=== PATIENT | male | born 1960 | race Caucasian/White ===

== ENCOUNTER 2018-09-19 10:53 | Inpatient (IN) | payer OTHER ==
[~2018-09-19] VITALS: Ht 162.6 cm; Wt 71.8 kg
[2018-09-19] VITALS (11 sets, daily range): BP systolic 90–109; BP diastolic 56–70
[2018-09-19 11:41] LABS: ABSOLUTE NEUTROPHILS 10.2 thou/uL (1.4-8.2); BASOPHILS 0.5 % (0.0-2.0); EOSINOPHILS 1.7 % (0.0-3.0); HEMATOCRIT 36.7 % (42.0-52.0); LYMPHOCYTES 11.6 % (24.0-44.0); MCH 23.5 pg (26.0-34.0); MCHC 32.6 g/dL (28.0-37.0); MCV 71.9 fL (80.0-100.0); MONOCYTES 9.1 % (1.0-8.0); PLATELET COUNT 225 thou/uL (150-400); POLYS 77.1 % (36.0-66.0); RDW 13.7 % (10.5-14.5); WBC 13.3 thou/uL (4.0-11.0)
[2018-09-19 11:49] LABS: CREATININE 1.4 mg/dL (0.7-1.3); POTASSIUM 3.6 mmol/L (3.5-5.1)
[2018-09-19 11:59] LABS: TROPONIN-I 29.52 ng/mL (<0.06)
[2018-09-19 12:29] LABS: CHOLESTEROL 195 mg/dL (<200); HDL CHOLESTEROL 36 mg/dL (>40); LDL CHOLESTEROL 124 mg/dL (<100); TC:HDL 5.4 Ratio (Not establshd); TRIGLYCERIDE 175 mg/dL (<150); VLDL 35 mg/dL (<40)
--- NOTE | 2018-09-19 14:23 | CATHLAB ---
[facility] [place] [address] INVASIVE PROCEDURE REPORT Name: SASKIA CAVANAUGH Room #: 150-1 ADM IN M.R.#: [id number] Admission: 09/19/18 Attend Phys: Rock Delong MD Discharge: Date of : 62 Date of Service: 09/19/18 1423 Report #: [id number] THIS REPORT FOR: //name// APPROVED REPORT Study performed: 09/19/2018 12:20:28 Patient Details Patient Status: In-Patient Room #: The patient is a 57 year-old male Event Personnel Domingo Espinoza Enrober, Tisha Prasad RN RN, Rufina Tejada Monitor, Maria Luisa Langeub, Danii Ayoub RT(R)() Scrsabine Procedures Performed Art Access - R femoral artery* 07478 Initial Mod Sed Same Phys/QHP Gr5y 125533 33798 Mod Sed Same Phys/QHP Ea 754341 Left Heart Cath w/or w/o Coronaries 6230787 [facility] Revasc AMI Total/Sub Single RCA C[address] w/wo Plasty Single LAD 806831 Hemostasis w/ Mynx Indication STEMI Procedure Narrative The patient was brought emergently to the Cardiac Catheterization Laboratory and was prepped and draped in a sterile manner. The Right Groin^ was infiltrated with 1% Lidocaine subcutaneous anesthesia. A PINNACLE 6FR Sheath #[id number] sheath was inserted into the RFA^. Coronary angiography was performed using coronary diagnostic catheters. The right coronary system was accessed and visualized with a JR 4 catheter. The left coronary system was accessed and visualized with a JL 4 catheter. The left ventricle was accessed and visualized with a Pigtail catheter. Left ventricular/Aortic Valve gradient assessed via catheter pullback. Left ventriculogram was performed in GREWAL projection. Closure device was deployed with a 6 Fr Mynx. The patient tolerated the procedure well and there were no complications associated with the procedure. There was no hematoma. Intraoperative Conscious Sedation Sedation start time: 12:27 Case end Time: 13:37 Fentanyl 50 mcg Versed [address] [address] INVASIVE PROCEDURE REPORT Name: SASKIA CAVANAUGH Room #: 150-1 [facility]#: [id number] Admission: 09/19/18 Attend Phys: Rock Delong MD Discharge: Date of : 62 Date of Service: 09/19/18 1423 Report #: [id number] Fluoro Time: 11.18 minutes Dose: DAP 36802.00 cGycm2 1537 mGy Contrast Type and Amount: Visipaque 300 ml Coronary Angiography The patient's coronary anatomy is co- dominant. Diagnostic Cath Left Main Normal left main LAD Moderate 50% proximal LAD stenosis with a discrete 85% stenosis in the proximal LAD just after a large first diagonal branch Diagonal 1 40-50% proximal stenosis. This was a large vessel Circumflex Circumflex was large but nondominant. The circumflex was angiographically normal OM1 Small first marginal branch, angiographically normal L PDA The distal circumflex gave rise to the posterior descending which was relatively small but angiographically normal Right Coronary The right coronary exhibited a 40-50% proximal stenosis. The distal right coronary was occluded before the origin of a large posterior lateral branch, small posterior descending branch Left Ventriculography The left ventricle is normal in size with abnormal contractility. The left ventricular ejection fraction is estimated to be 45%. Left ventricular wall motion abnormalities are present. There is no mitral insufficiency. Hypokinesis involving the inferior wall. Hemodynamics The aortic pressure is 119/70 mmHg with a mean of 88 mmHg. The left ventricular pressure is 107/21 mmHg with a mean of mmHg. The left ventricular end diastolic pressure is 38 mmHg. PCI Technique Lesion Anticoagulation was achieved with Heparin, Integrilin. Patient was preloaded with Effient. Percutaneous coronary intervention was performed on the distal right coronary artery. The lesion stenosis prior to intervention was 100% with NATALIIA 0 flow. A LAUNCHER 6FR JR 4 #[id number] Guide Catheter was used to engage the right coronary ostium. A Luge Wire .014 x 182CM #[id number] Interventional Guidewire was used to cross the lesion. BALLOON DILATION [facility] [address] [place] [address] INVASIVE PROCEDURE REPORT Name: SASKIA CAVANAUGH Room #: 150-1 [facility] IN [facility]#: [id number] Admission: 09/19/18 Attend Phys: Rock Delong MD Discharge: Date of : 62 Date of Service: 09/19/18 1423 Report #: [id number] A Balloon catheter Euphora RX 2.5 x 12 #[id number] was inserted and inflated up to 8.00atm for 28seconds. Repeat angiography revealed the following post-dilatation results: long, severe residual stenosis. Additional Inflation: 10.00atm for 32seconds. Additional Inflation: 12.00atm for 33seconds. STENT DEPLOYMENT A drug-eluting stent RESOLUTE PENELOPE RX 3.0 X 26 #[id number] was inserted and inflated up to 14.00atm for 25seconds. Repeat angiography revealed the following post-stent deployment results: 0% residual with NATALIIA-3 flow restored. POST STENT DEPLOYMENT BALLOON DILATION A Balloon catheter TREK NC RX 3.0 X 15 #[id number] was inserted and inflated up to 18.00atm for 30seconds. Repeat angiography revealed the following post-stent deployment results: 0% residual stenosis with NATALIIA-3 flow restored.. Additional Inflation: 22.00atm for 30seconds. Final angiography reveals 0 % stenosis with NATALIIA 3 flow. PCI Technique Lesion 2 Percutaneous Coronary Intervention was performed on the proximal left anterior descending artery segment. Patient was preloaded with Effient. Percutaneous coronary intervention was performed on the proximal left anterior descending. The lesion stenosis prior to intervention was 90% with NATALIIA 3 flow. A LAUNCHER 6FR EBU 3.5 #[id number] Guide Catheter was used to engage the left main ostium. A Luge Wire .014 x 182CM #[id number] Interventional Guidewire was used to cross the lesion. Balloon Dilation A Balloon catheter Euphora RX 2.5 x 12 #[id number] was inserted and inflated up to 6.00atm for 14seconds. Repeat angiography revealed the following post-dilatation results: moderate residual stenosis. Additional Inflation: 8.00atm for 30seconds. Stent Deployment A drug-eluting stent RESOLUTE PENELOPE RX 2.75 X15 #[id number] was inserted and inflated up to 12.00atm for 17seconds. Repeat angiography revealed the following post-stent deployment results: 0% residual stenosis. Post Stent Deployment Balloon Dilation A Balloon catheter TREK NC RX 2.5 X 12 #[id number] was inserted and inflated up to 24.00atm for 27seconds. Repeat angiography revealed [facility] [address] [place] [address] INVASIVE PROCEDURE REPORT Name: SASKIA CAVANAUGH Room #: 150-1 ADM IN [facility]#: [id number] Admission: 09/19/18 Attend Phys: Rock Delong MD Discharge: Date of : 62 Date of Service: 09/19/18 1423 Report #: [id number] the following post-dilatation results: 0% residual stenosis. Final angiography reveals 0 % stenosis with NATALIIA 3 flow. Conclusion 1. Moderate left ventricular dysfunction with inferior wall hypokinesis. Ejection fraction 45% 2. Normal left main 3. Severe proximal LAD stenosis successfully stented with a 2.75 x 15 mm Resolute [place] medicated stent. Moderate 50% proximal LAD stenosis to the stent 4. Normal, codominant circumflex 5. Occluded distal right coronary successfully stented with a 3.0 x 26 mm Resolute [place] medicated stent. Distal right supplied a large PL branch Recommendations Smoking Cessation Cardiac Rehabilitation Referral Aggressive Medical Therapy Medications Administered BETO Inhibitor (any) Aspirin (any) Statin (any) Prasugrel Cardiac Rehabilitation Referral Smoking Cessation <ELECTRONICALLY SIGNED> By: Domingo Espinoza MD, FAC 09/19/18 1423 1423 1423 Domingo Espinoza MD, FACC /INF
[2018-09-19] MEDS ORDERED: TYLENOL EXTRA500 MG PO (22:02)
[2018-09-20 00:05] LABS: GLYCOHEMOGLOBIN (HGB A1C) 6.3 % (4.8-5.6)
[2018-09-20 00:45] VITALS: BP 92/56
[2018-09-20 04:30] VITALS: BP 95/61
[2018-09-20 05:52] LABS: HEMATOCRIT 31.5 % (42.0-52.0); HEMOGLOBIN 10.2 gm/dL (14.0-18.0); MCH 23.4 pg (26.0-34.0); MCHC 32.4 g/dL (28.0-37.0); MCV 72.4 fL (80.0-100.0); RBC 4.35 mil/uL (4.50-6.00); RDW 14.4 % (10.5-14.5); WBC 11.5 thou/uL (4.0-11.0)
--- NOTE | 2018-09-20 05:53 | NUR ---
PT. ON BED RESTING WITH SPOUSE AND DAUGHTER IN THE ROOM; AOX4; R PEDAL PULSE PRESENT; NO EDEMA OR HEMATOMA OVER INCISION; DRESSING SHOWING OLD BLEEDING; NO C/O UNTIL EARLY ON THE MORNING; COMPLETED ADMITION; ADVICE TO QUIT SMOKING HR WNL; SBP ON 90'S; NO C/O HEADACHE OR DIZZINESS; ABLE TO REST MOS THE NIGHT. ASSESSMENT CHARGED; FOLLOWING POC.
[2018-09-20 06:09] LABS: ALBUMIN 2.6 g/dL (3.4-5.0); CALCIUM 7.9 mg/dL (8.5-10.1); CREATININE 1.2 mg/dL (0.7-1.3); POTASSIUM 3.6 mmol/L (3.5-5.1); TOTAL BILIRUBIN 1.2 mg/dL (<0.1-1.0); TOTAL PROTEIN 6.3 g/dL (6.4-8.2)
[2018-09-20 06:12] LABS: TROPONIN-I 39.02 ng/mL (<0.06)
[2018-09-20 07:55] VITALS: BP 98/59
[2018-09-20 11:45] VITALS: BP 108/73
--- NOTE | 2018-09-20 11:58 | EKG ---
[address] [address] ELECTROCARDIOGRAM REPORT Name: SASKIA CAVANAUGH Room #: 210-P ADM IN M.R.#: [id number] Admission: 09/19/18 Attend Phys: Rock Delong MD Discharge: Date of : 62 Report #: [id number] THIS REPORT FOR: //name// [facility] ED Test Date: 2018-09-19 Test Time: 11:29:47 Pat Name: SASKIA CAVANAUGHDepartment: Room: 210 Gender: M Animal Husbandman: TOÑO : 1960 Requested By: Andrea Burrows Order Number: [id number] MD: Domingo Espinoza Measurements Intervals [place] Rate: 67 P: 45 IL: 212 QRS: -18 QRSD: 94 T: 3 QT: 388 QTc: 410 Interpretive Statements Sinus rhythm Prolonged IL interval Inferolateral infarct, acute No previous ECG available for comparison Electronically Signed On 09-20-2018 11:58:10 COOK BOX FILLER by Domingo Espinoza [email or web address] <ELECTRONICALLY SIGNED> By: Domingo Espinoza MD, [facility] 09/20/18 1158 1129 1129 Domingo Espinoza MD, FAC /EPI
--- NOTE | 2018-09-20 12:00 | EKG ---
[place] [address] [place] [address] ELECTROCARDIOGRAM REPORT Name: SASKIA CAVANAUGH Room #: 210- ADM IN M.R.#: [id number] Admission: 09/19/18 Attend Phys: Rock Delong MD Discharge: Date of : 62 Report #: [id number] THIS REPORT FOR: //name// [facility] Test Date: 2018-09-19 Test Time: 14:45:41 Pat Name: SASKIA CAVANAUGHDepartment: Room: 210 Gender: M Hoseman: KYUNG : 1960 Requested By: Domingo Espinoza Order Number: [id number] MD: Domingo Espinoza Measurements Intervals [place] Rate: 72 P: 39 MN: 190 QRS: -20 QRSD: 87 T: -18 QT: 383 QTc: 420 Interpretive Statements Sinus rhythm Inferior infarct, recent No previous ECG available for comparison Electronically Signed On 09-20-2018 12:00:12 SHEAR SCRAPMAN by Domingo Espinoza [email or web address] <ELECTRONICALLY SIGNED> By: Domingo Espinoza MD, [facility] 09/20/18 [facility] 1445 1445 Domingo Espinoza MD, FACC /EPI
--- NOTE | 2018-09-20 12:10 | EKG ---
[address] [address] ELECTROCARDIOGRAM REPORT Name: SASKIA CAVANAUGH Room #: 210-P ADM IN M.R.#: [id number] Admission: 09/19/18 Attend Phys: Rock Delong MD Discharge: Date of : 62 Report #: [id number] THIS REPORT FOR: //name// [facility] Test Date: 2018-09-20 Test Time: 09:58:44 Pat Name: SASKIA CAVANAUGHDepartment: Room: 210 P Gender: M Vamp Wetter: NICKI : 1960 Requested By: Domingo Espinoza Order Number: [id number] MD: Domingo Espinoza Measurements Intervals [place] Rate: 97 P: 41 MA: 200 QRS: -20 QRSD: 93 T: -45 QT: 353 QTc: 449 Interpretive Statements Sinus rhythm Borderline prolonged MA interval Abnormal R-wave progression, early transition Inferior infarct, recent No previous ECGs available for comparison Electronically Signed On 09-20-2018 12:09:52 [employer]OR [employer]LYTICS by Domingo Espinoza [email or web address] <ELECTRONICALLY SIGNED> By: Domingo Espinoza MD, [facility] 09/20/18 1209 0958 0958 Domingo Espinoza MD, [facility] /EPI
--- NOTE | 2018-09-20 12:16 | HC ---
[facility] [place] [address] CONSULTATION Name: SASKIA CAVANAUGH Room #: 210-P [facility] IN M.R.#: [id number] Admission: 09/19/18 Attend Phys: Rock Delong MD Discharge: Date of : 62 Report #: [id number] THIS REPORT FOR: //name// CC: [facility] physician/PCP Rock Delong DATE OF SERVICE: 09/19/2018 REASON FOR CONSULTATION: Chest pain. HISTORY OF PRESENT ILLNESS: The patient is a 57-year-old [place] gentleman with a fairly limited past medical history. He is a smoker. Over the past 2-3 days, he has experienced midsternal chest tightness. This has come and gone, although was more persistent earlier today. He has also had episodes of lightheadedness, particularly with standing. No associated palpitations or syncope. No prior cardiac history. He presented to the Emergency Department for an EKG at 07/30/2018 demonstrated sinus rhythm with inferolateral acute OK. There were fairly sizable inferior and lateral Q-waves present. He has ongoing midsternal chest discomfort. No heart failure symptoms including orthopnea, paroxysmal nocturnal dyspnea, or lower extremity edema. ALLERGIES: No known drug allergies. MEDICATIONS: Takes no medicines on a regular basis. PAST MEDICAL HISTORY: Medical records have been reviewed. No significant hospitalizations or illnesses. SOCIAL HISTORY: He is a smoker, woodworking machinist, . FAMILY HISTORY: Unremarkable for premature coronary artery disease. REVIEW OF SYSTEMS: All systems negative except as that noted above. PHYSICAL EXAMINATION: GENERAL: A pleasant gentleman in no distress. VITAL SIGNS: Blood pressure is 110/70, heart rate of 67 and regular. HEENT: There are neither xanthelasma, subcutaneous xanthomata, oral mucosal or digital cyanosis or kyphoscoliosis present. CHEST: Clear to auscultation and percussion. CARDIAC: Reveals a distant regular rate and rhythm with normal S1, S2. No murmurs or rubs. ABDOMEN: Soft and nontender. EXTREMITIES: Without cyanosis, clubbing or edema. Radial pulses are 2+. NEUROLOGIC: He is alert with a nonfocal exam. [facility] [address] [place] [address] CONSULTATION Name: SASKIA CAVANAUGH Room #: 210-[facility]#: [id number] Admission: 09/19/18 Attend Phys: Rock Delong MD Discharge: Date of : 62 Report #: [id number] LABORATORY DATA: Troponin is 29, white count 13.3, creatinine 1.4. IMPRESSION: 1. Acute inferolateral myocardial infarction. 2. Orthostatic hypotension. 3. Unknown lipid status. 4. Tobacco dependency. RECOMMENDATIONS: 1. Heparin and antiplatelet therapy. 2. Urgent coronary angiography. The angiographic procedure was discussed in detail including its associated risks. After a thorough discussion of the procedure, its risks and alternatives and after answering his questions, he is agreeable to proceeding. <ELECTRONICALLY SIGNED> By: Domingo Espinoza MD, FAC 09/20/18 1216 1206 1859 Domingo Espinoza MD, [facility] /nt
[2018-09-20 15:40] VITALS: BP 120/83
--- NOTE | 2018-09-20 18:01 | NUR ---
ASSESSMENTS COMPLETED AND DOCUMENTED. NO S/SX OF CARDIAC OR RESP DISTRESS. NO COMPLAINTS VOICED. WALKING UNIT TODAY, FAMILY AT BEDSIDE. WILL CONTINUE TO MONITOR.
[2018-09-20 20:39] VITALS: BP 131/87
[2018-09-21 05:59] VITALS: BP 129/65
--- NOTE | 2018-09-21 07:41 | NUR ---
ASSUME CARE 1900. PT/VITALS STABLE. ADEQUATE REST NOTED THROUGH THE NIGHT. UP AD EDI. DENIES ANY PAIN. PROGRESSING WELL WITH POC. PLAN IS POSSIBLE DISCHARGE HOME TODAY. WILL CONTINUE TO FOLLOW WITH POC
[2018-09-21] MEDS ORDERED: LISINOPRIL5 MG PO (07:58)
[2018-09-21] MEDS ORDERED: ATORVASTATIN CA40 MG PO (07:58)
[2018-09-21] MEDS ORDERED: ASPIRIN325 PO (07:58)
[2018-09-21] MEDS ORDERED: TOPROL XL25 MG PO (07:58)
[2018-09-21] MEDS ORDERED: EFFIENT10 MG PO (07:58)
[2018-09-21 08:00] VITALS: BP 123/83
[2018-09-21 12:00] VITALS: BP 129/81
--- NOTE | 2018-09-21 12:33 | 2DMMODE ---
[facility] [address] [place] [address] 2 D/M-MODE ECHOCARDIOGRAM Name: SASKIA CAVANAUGH Room #: 210-P ADM IN M.R.#: [id number] Admission: 09/19/18 Attend Phys: Rock Delong MD Discharge: Date of : 62 Date of Service: 09/21/18 1233 Report #: [id number] THIS REPORT FOR: //name// APPROVED REPORT Study performed: 09/21/2018 09:03:37 EXAM: Comprehensive 2D, Doppler, and color-flow Echocardiogram Patient Location: Bedside Room #: 210 Status: routine BSA: 1.77 HR: 80 bpm BP: 129/65 mmHg Rhythm: NSR Other Information Study Quality: Adequate Risk Factors: Cardiac Risk Factors: Hyperlipidemia, Smoking Indications Dyspnea CAD S/P Stents to RCA, LAD Inferior SC 2D Dimensions IVSd: 10.46 (7-11mm) LVOT Diam: 19.00 (18-24mm) LVDd: 46.59 mm PWd: 10.23 (7-11mm) Ascending Ao: 30.47 (22-36mm) LVDs: 35.11 (25-40mm) Aortic Root: 25.18 mm LV Single Plane 4CH: 51.38 % LV Single Plane 2CH: 55.29 % Biplane EF: 52.8 % Volumes Left Atrial Volume (Systole) Single Plane 4CH: 61.48 mL Single Plane 2CH: 42.53 mL LA ESV Index: 32.00 mL/m2 Aortic Valve AoV Peak Joel.: 1.94 m/s [facility] [employer] [place] [address] 2 D/M-MODE ECHOCARDIOGRAM Name: SASKIA CAVANAUGH Room #: 210-P [facility] IN [facility].#: [id number] Admission: 09/19/18 Attend Phys: Rock Delong MD Discharge: Date of : 62 Date of Service: 09/21/18 1233 Report #: [id number] AO Peak Gr.: 15.00 mmHg LVOT Max P.40 mmHg LVOT Max V: 1.05 m/s SAW Vmax: 1.56 cm2 Mitral Valve E/A Ratio: 0.8 MV Decel. Time: 172.27 ms MV E Max Joel.: 0.98 m/s MV A Joel.: 1.26 m/s MV PHT: 49.96 ms IVRT: 51.90 ms Pulmonary Valve PV Peak Joel.: 1.26 m/s PV Peak Gr.: 6.32 mmHg Pulmonary Vein P Vein S: 0.74 m/s P Vein A: 0.40 m/s P Vein D: 0.50 m/s P Vein A Dur.: 72.7 msec P Vein S/D Ratio: 1.48 Tricuspid Valve TR Peak Joel.: 2.58 m/s RAP Estimate: 7.00 mmHg TR Peak Gr.: 26.59 mmHg PA Pressure: 34.00 mmHg Left Ventricle The left ventricle is normal size. Inferior hypokinesis. There is normal left ventricular wall thickness. Left ventricular systolic function is mildly decreased. Hypokinesis of inferior wall and inferoseptum. LVEF is 45-50%. Grade I - abnormal relaxation pattern. Right Ventricle The right ventricle is normal size. The right ventricular systolic function is normal. Atria The left atrium size is normal. The right atrium size is normal. Aortic Valve The aortic valve is normal in structure. No aortic regurgitation is present. There is no aortic valvular stenosis. Mitral Valve The mitral valve is normal in structure. No mitral regurgitation. No [address] [address] 2 D/M-MODE ECHOCARDIOGRAM Name: SASKIA CAVANAUGH Room #: 210-P [facility] IN ..#: [id number] Admission: 09/19/18 Attend Phys: Rock Delong MD Discharge: Date of : 62 Date of Service: 09/21/18 1233 Report #: [id number] evidence of mitral valve stenosis. Tricuspid Valve The tricuspid valve is normal in structure. Trace tricuspid regurgitation. Pulmonary artery pressure is 34 mmHg. Pulmonic Valve The pulmonary valve is normal in structure. There is no pulmonic valvular regurgitation. Great Vessels The aortic root is normal in size. IVC is normal in size and collapses >50% with inspiration. Pericardium There is no pericardial effusion. <Conclusion> Left ventricular systolic function is mildly decreased. Hypokinesis of inferior wall and inferoseptum. LVEF is 45-50%. Grade I - abnormal relaxation pattern. The aortic valve is normal in structure. No aortic regurgitation or stenosis The mitral valve is normal in structure. No mitral regurgitation. Trace tricuspid regurgitation. Pulmonary artery pressure of 34 mmHg. There is no pericardial effusion. <ELECTRONICALLY SIGNED> By: Domingo Espinoza MD, FACC 09/21/18 1233 1233 1233 Domingo Espinoza MD, FACC /INF
[2018-09-21] MEDS ORDERED: GLUCOPHAGE XR500 MG PO (14:15)
[2018-09-21 14:37] VITALS: BP 129/81
== END 2018-09-21 15:05 | disposition home or self-care (01) | DRG 246 ==
LOC: ER 10:53 → TBA 12:14 → 2N 12:14 → ER 12:19 → 2N 12:19 → ENTRNSPT 09-21 14:54 → EDTRNSPTSTS 09-21 14:58 → 2N 09-21 15:05
PROVIDERS: Emergency Medicine; Internal Medicine; ADMIT Hospitalist
PROC: 027135Z Dilation of Coronary Artery, Two Arteries with Two Drug-eluting Intraluminal Devices, Percutaneous Approach (ICD-10-PCS; principal; 2018-09-19)
PROC: B211YZZ Fluoroscopy of Multiple Coronary Arteries using Other Contrast (ICD-10-PCS; principal; 2018-09-19)
PROC: B215YZZ Fluoroscopy of Left Heart using Other Contrast (ICD-10-PCS; principal; 2018-09-19)
PROC: 4A023N7 Measurement of Cardiac Sampling and Pressure, Left Heart, Percutaneous Approach (ICD-10-PCS; principal; 2018-09-19)
DX: I21.19 ST elevation (STEMI) myocardial infarction involving other coronary artery of inferior wall (principal); I50.33 Acute on chronic diastolic (congestive) heart failure; N17.9 Acute kidney failure, unspecified; I95.1 Orthostatic hypotension; E78.5 Hyperlipidemia, unspecified; F17.210 Nicotine dependence, cigarettes, uncomplicated; I11.0 Hypertensive heart disease with heart failure; I25.10 Atherosclerotic heart disease of native coronary artery without angina pectoris; I50.9 Heart failure, unspecified; Z28.21 Immunization not carried out because of patient refusal; Z82.49 Family history of ischemic heart disease and other diseases of the circulatory system; Z79.82 Long term (current) use of aspirin; Z79.899 Other long term (current) drug therapy
CPT/HCPCS: 10081

== ENCOUNTER → 2018-11-20 | Outpatient (CLI) | payer OTHER ==
[~2018-11-20] VITALS: Ht 162.6 cm; Wt 68.0 kg
[~2018-11-20] MED LIST: ASPIRIN325 PO; ATORVASTATIN CA40 MG PO; EFFIENT10 MG PO; GLUCOPHAGE XR500 MG PO; LISINOPRIL5 MG PO; TOPROL XL25 MG PO; TYLENOL EXTRA500 MG PO
--- NOTE | 2018-11-23 16:06 | PATH ---
[facility] [address] [place] [address] PATHOLOGY RPT PROCEDURE Name: CARLINE CAVANAUGH Room #: REG BRAN Bharath.#: [id number] ������������������ Admission: 11/20/18 ������������������ Date of : 62 Discharge: Report #: [id number] Path Case #: [id number] [facility] Accession Number: [id number] . 01 Material submitted: . PART A: BX SMALL BOWEL D/X ANEMIA R/O CELIAC PART B: BX SUBMUCOSAL LESIONS OF 2ND PART OF DUODENUM PART C: BX GASTRITIS PART D: BX NODULAR ILEUM PART E: BX POLYP AT RECTUM . 01 Clinical history: . Pre-OP DX: Anemia Post-OP DX: Gastritis, submucosal lesion duodenum, rectal polyp, diverticulosis . 02 Diagnosis: A. Small bowel mucosa, small bowel rule out celiac, endoscopic biopsy: - No diagnostic abnormalities present. - Negative for villous blunting or increase in intraepithelial lymphocytes. . B. Small bowel mucosa, submucosal lesions of second part of duodenum, endoscopic biopsy: - Reactive non-specific changes. - Negative for acute inflammation. - Negative for dysplasia, villous blunting or malignancy. . C. Gastric mucosa, gastritis, endoscopic biopsy: - Mild reactive gastropathy. - Negative for intestinal metaplasia or atrophy. - Negative for Helicobacter pylori (properly controlled immunohistochemical stain performed). . D. Small bowel mucosa, nodular ileum, endoscopic biopsy: - Peyer's patches showing reactive changes. - Negative for villous blunting or increase in intraepithelial lymphocytes. - Negative for ulceration or active ileitis. . E. Polyp, at rectum, endoscopic biopsy: - Hyperplastic polyp. - Negative for dysplasia or malignancy. (IUV/db; 11/23/2018) LBQ/11/23/2018 . 02 Electronically signed: . [address] [address] PATHOLOGY RPT PROCEDURE Name: CARLINE CAVANAUGH Room #: REG BRAN Mackey#: [id number] ������������������ Admission: 11/20/18 ������������������ Date of : 62 Discharge: Report #: [id number] Path Case #: [id number] Jewell Orellana MD, Pathologist NPI- [id number] . 01 Gross description: . A. Received in formalin labeled "Carline Cavanaugh, BX small bowel d/t anemia, rule out celiac sprue," are multiple segments of barr soft tissue measuring 1.6 x 0.5 x 0.1 cm in aggregate dimensions. The specimen is filtered and entirely submitted in cassette A1. . B. Received in formalin labeled "Carline Cavanaugh, BX of submucosal lesion of second part of duodenum," are multiple segments of barr soft tissue measuring 0.9 x 0.3 x 0.1 cm in aggregate dimensions. The specimen is filtered and entirely submitted in cassette B1. . C. Received in formalin labeled "Carline Cavanaugh, BX gastritis," are multiple segments of barr soft tissue measuring 0.9 x 0.5 x 0.1 cm in aggregate dimensions. The specimen is filtered and entirely submitted in cassette C1. . D. Received in formalin labeled "Carline Cavanaugh, nodular ileum," are multiple segments of barr soft tissue measuring 1.1 x 0.5 x 0.1 cm in aggregate dimensions. The specimen is filtered and entirely submitted in cassette D1. . E. Received in formalin labeled "Carline Cavanaugh, BX rectal polyp," and additionally labeled on the requisition as "at rectum," are 2 segments of barr soft tissue measuring 0.8 x 0.4 x 0.3 cm in aggregate dimensions and ranging from 0.3 to 0.5 cm in maximum dimension.. The specimen is filtered and entirely submitted in cassette E1. (TSD; 11/20/2018) TOB/TOB . 02 Pathologist provided ICD-10: K31.9, K62.1, D64.9 . 02 CPT . 974426, 485019, 330200, 803424, 678279, J40055 Specimen Comment: A courtesy copy of this report has been sent to Specimen Comment: [phone], . Specimen Comment: Report sent to / DR EAST Performed at: [address], [place], [place] [id number] MD Migel Waldrop MD Phone: [phone] Performed at: [address] [id number] MD Jewell Orellana MD Phone: [phone]
--- NOTE | 2018-11-23 17:56 | P ---
[facility] [place] [address] PROCEDURE REPORT Name: SASKIA CAVANAUGH Room #: REG [facility]#: [id number] Admission: 11/20/18 ������������������ Attend Phys: Maurizio Bruce MD Discharge: ������������������ Date of : 62 Report #: [id number] THIS REPORT FOR: //name// CC: Maurizio Gómez MD BRIEF HISTORY: The patient is a 58-year-old male with iron deficiency anemia. PREOPERATIVE DIAGNOSIS: Iron deficiency anemia. POSTOPERATIVE DIAGNOSES: 1. Diminutive rectal polyp. 2. Diverticulosis coli, primarily proximal colon. 3. Nodular appearance of terminal ileum, questionable significance. MEDICATIONS: Deep sedation with propofol per Anesthesia. SPECIMENS: 1. Biopsies of terminal ileum nodularity. 2. Rectal polyp. ESTIMATED BLOOD LOSS: 3 mL. PROCEDURE: Colonoscopy to cecum and terminal ileum with biopsy. FINDINGS: Prior to propofol sedation, procedure of colonoscopy discussed with the patient as well as potential risks and its complications. He indicates he understands and desires to proceed. DESCRIPTION OF PROCEDURE: With the patient in left lateral decubitus position, digital examination was completed which revealed no abnormalities. Subsequently, the Olympus video colonoscope was introduced in the rectum, advanced under direct vision to the cecum. Done with minimal difficulty. The cecum was identified by the ileocecal valve and the appendiceal orifice. I was able to visualize the distal segment of the terminal ileum, which was inspected and noted to be unremarkable. At that point, the scope was slowly withdrawn and careful circumferential views were obtained including retroflexion of the scope in the ascending colon. Upon slow withdrawal of the scope, the prep was excellent. Mucosa was within normal limits, normal vascular pattern, normal light reflex. It was noted in the ileum, there was some nodularity. It had an unusual pattern and this may simply represent lymphoid nodules, but multiple biopsies were obtained. There were no ulcerations, mass lesions, strictures. It all had a benign appearance. As we withdrew the scope through the colon, the mucosa was inspected and noted to be within normal limits. There were scattered diverticula in the proximal colon at the level of the hepatic flexure and there was no evidence of diverticulitis. The scope was further withdrawn and no [facility] [address] [place] [address] PROCEDURE REPORT Name: SASKIA CAVANAUGH Room #: REG [facility]#: [id number] Admission: 11/20/18 ������������������ Attend Phys: Maurizio Bruce MD Discharge: ������������������ Date of : 62 Report #: [id number] additional abnormalities were seen until the rectum was reached, at which point a 4 mm sessile polyp was seen and removed with biopsy forceps. Scope was further withdrawn and no additional abnormalities were seen. Upon retroflexion, no abnormalities were seen. Scope was withdrawn. The patient tolerated the procedure well. CONDITION OF THE PATIENT UPON DISCHARGE: Following the procedure, the patient was drowsy, aroused, conversant and will be discharged home when fully ambulatory. INSTRUCTIONS TO THE PATIENT AND FAMILY AT THE TIME OF DISCHARGE: We will follow up on biopsies obtained today. If the polyp is an adenoma, suggest followup colon exam in 5 years; if it is not an adenoma, then 10 years for routine screening colonoscopy. Also, follow up on biopsies with regard to the nodular change in the ileum. We will make further recommendations after review of the path report. As for his iron deficiency anemia, I do not find any bleeding lesions or suspected bleeding lesions in the. Please see upper endoscopy report. Await results of biopsies. If biopsies are nondiagnostic, especially with regards to celiac disease, he may need a small bowel capsule study as well. He will, otherwise, return to care of Dr. Jose Gómez. ��������������������������������������������� <ELECTRONICALLY SIGNED> ���������������������������������������� By: Maurizio Bruce MD ��������������������������������������������� 11/23/18 1756 [id number] Maurizio Bruce MD /nt
--- NOTE | 2018-11-23 17:56 | P ---
[facility] [place] [address] PROCEDURE REPORT Name: SASKIA CAVANAUGH [facility] [id number] Admission: 11/20/18 ������������������ Attend Phys: Maurizio Bruce MD Discharge: ������������������ Date of : 62 Report #: [id number] THIS REPORT FOR: //name// CC: Maurizio Gómez DATE OF SERVICE: 11/20/2018 OUTPATIENT UPPER ENDOSCOPY BRIEF HISTORY: The patient is a 58-year-old male with recent findings of iron deficiency anemia. He is asymptomatic. He is on antiplatelet therapy due to a coronary event in September 2018 with intervention. PREOPERATIVE DIAGNOSIS: Iron deficiency anemia. POSTOPERATIVE DIAGNOSES: 1. Diffuse gastritis without ulceration. 2. Submucosal lesion, second portion of duodenum, question of lipoma. MEDICATIONS: Deep sedation with propofol per anesthesia. SPECIMENS: 1. Biopsies of small bowel, rule out celiac disease. 2. Biopsy of submucosal lesion, second portion of duodenum. 3. Random biopsies of stomach regarding gastritis. ESTIMATED BLOOD LOSS: 3 mL PROCEDURE: Esophagogastroduodenoscopy with biopsy. FINDINGS: Prior to propofol sedation, procedure of upper endoscopy was discussed with the patient as well as potential risks and its complications. He indicates he understands and desires that we proceed. DESCRIPTION OF PROCEDURE: With the patient in lateral decubitus position, the Olympus video endoscope was inserted in the cervical esophagus under direct vision without difficulty. Examination of this organ to its length revealed normal esophageal mucosa down the squamocolumnar junction. The squamocolumnar junction was inspected and noted to be unremarkable. No ulcers or erosions were seen. No bleeding lesions were seen. Hiatus hernia was not seen. Scope was advanced in the stomach, was examined on end views as well as retroflexed views. There was a pattern of diffuse gastritis. No ulcers or erosions were seen. The pylorus, duodenal bulb and postbulbar sweep were inspected. The mucosa was intact without ulceration or bleeding lesions. Multiple biopsies were obtained to evaluate for celiac disease. In the second portion of duodenum, there was an [facility] [address] [place] [address] PROCEDURE REPORT Name: BENJAMIN CAVANAUGHSOHANSusanne Room #: REG [facility] Key#: [id number] Admission: 11/20/18 ������������������ Attend Phys: Maurizio Bruce MD Discharge: ������������������ Date of : 62 Report #: [id number] oblong 2 cm submucosal lesion, had a smooth and benign appearance. It had a "pillow sign" with palpation with forceps and was soft and may be a lipoma, although typical yellowish appearance was not seen. Multiple biopsies were obtained. At that point, the scope was slowly withdrawn and careful circumferential views confirmed the above findings. The patient tolerated the procedure well. CONDITION OF THE PATIENT UPON DISCHARGE: Following the procedure, the patient was drowsy and will be discharged home when fully ambulatory. INSTRUCTIONS TO THE PATIENT AND FAMILY AT THE TIME OF DISCHARGE: We will follow up on biopsies obtained today. Proceed with colonoscopy for further evaluation of iron deficiency anemia. With regard to the submucosal lesion, we will follow up on biopsies. If there remains concern, an endoscopic ultrasound may be needed. ��������������������������������������������� <ELECTRONICALLY SIGNED> ���������������������������������������� By: Maurizio Bruce MD ��������������������������������������������� 11/23/18 1756 [id number] Maurizio Bruce MD /nt
== END | disposition home or self-care (01) ==
LOC: GI 08:09
DX: K62.1 Rectal polyp (principal); K57.30 Diverticulosis of large intestine without perforation or abscess without bleeding; K63.89 Other specified diseases of intestine; I10 Essential (primary) hypertension; E11.9 Type 2 diabetes mellitus without complications; E78.5 Hyperlipidemia, unspecified; I25.2 Old myocardial infarction; K31.9 Disease of stomach and duodenum, unspecified; Z87.891 Personal history of nicotine dependence; Z98.890 Other specified postprocedural states; Z79.82 Long term (current) use of aspirin; Z79.899 Other long term (current) drug therapy; Z95.5 Presence of coronary angioplasty implant and graft
CPT/HCPCS: 62110; 62900